=== PATIENT | male | born 1965 | race Hispanic/Latino ===

== ENCOUNTER 2020-03-13 19:09 | Observation (INO) | payer BC ==
[~2020-03-13] VITALS: Ht 172.7 cm; Wt 93.9 kg
--- NOTE | 2020-03-13 19:17 | Emergency Department Note ---
History of Present Illnes History of Present Illness Chief Complaint: Respiratory History of Present Illness This is a 54 year old male presents with Dyspnea x one day. Registered Nurse Practitioner Required: No Onset (how long ago): day(s) (1) Radiation: Reports non-radiation Severity: moderate Onset quality: gradual Duration (how long): day(s) (1) Timing of current episode: constant Progression: worsening Context: Reports recent illness; Denies recent surgery, Denies recent immobilization, Denies recent travel, Denies trauma/injury, Denies new medications, Denies hx of DVT/PE, Denies non- compliance w/ medications, Denies other Relieving factors: none Exacerbating factors: none Associated symptoms: Reports shortness of breath Past Medical/Family History Physician Review I have reviewed the patient's past medical and family history. Any updates have been documented here. Past Medical History Recent Fever: No Clinical Suspicion of Infectio: Yes New/Unexplained Change in Ment: No Past Medical History: Diabetes, CHF, Anxiety Other Surgery: prostate sx Social History Smoking Cessation: Never Smoker Alcohol Use: None Any Illegal Drug Use: No Review of Systems Review of Systems Constitutional: Denies fever EENTM: Reports no symptoms Cardiovascular: Denies chest pain Respiratory: Reports dyspnea Gastrointestinal: Reports no symptoms Genitourinary: Reports no symptoms Musculoskeletal: Reports no symptoms Integumentary: Reports no symptoms Neurological: Reports no symptoms Psychological: Reports no symptoms Endocrine: Reports no symptoms Hematological/Lymphatic: Reports no symptoms Physical Exam Related Data Allergies: Coded Allergies: No Known Allergies (Unverified , 03/13/20) Physical Exam CONSTITUTIONAL HENT EYES NECK PULMONARY CARDIOVASCULAR GASTROINTESTINAL GENITOURINARY SKIN MUSCULOSKELETAL NEUROLOGICAL PSYCHOLOGICAL Results Laboratory Lab results reviewed: Yes Laboratory comments Laboratory Tests Test 03/13/20 19:20 White Blood Count 7.80 x10e3/uL (4.8-10.8) Red Blood Count 5.35 x10e6/uL (4.3-5.7) Hemoglobin 14.9 g/dL (14.0-18.0) Hematocrit 44.4 % (38.2-49.6) Mean Corpuscular Volume 83.0 fL (81-99) Mean Corpuscular Hemoglobin 27.9 pg (28-32) Mean Corpuscular Hemoglobin Concent 33.6 g/dL (31-35) Red Cell Distribution Width 13.4 % (11.7-14.4) Platelet Count 81 x10e3/uL (140-360) Neutrophils (%) (Auto) 73.4 % (38.7-80.0) Lymphocytes (%) (Auto) 12.2 % (18.0-39.1) Monocytes (%) (Auto) 12.2 % (4.4-11.3) Eosinophils (%) (Auto) 0.1 % (0.0-6.0) Basophils (%) (Auto) 0.3 % (0.0-1.0) Neutrophils # (Auto) 5.7 (2.1-6.9) Lymphocytes # (Auto) 1.0 (1.0-3.2) Monocytes # (Auto) 1.0 (0.2-0.8) Eosinophils # (Auto) 0.0 (0.0-0.4) Basophils # (Auto) 0.0 (0.0-0.1) Absolute Immature Granulocyte (auto 0.14 x10e3/uL (0-0.1) Sodium Level 131 mmol/L (136-145) Potassium Level 3.8 mmol/L (3.5-5.1) Chloride Level 95 mmol/L (98-107) Carbon Dioxide Level 21 mmol/L (22-29) Anion Gap 18.8 mmol/L (8-16) Blood Urea Nitrogen 30 mg/dL (7-26) Creatinine 1.70 mg/dL (0.72-1.25) Estimat Glomerular Filtration Rate 42 ML/MIN (60-) BUN/Creatinine Ratio 18 (6-25) Glucose Level 235 mg/dL (74-118) Lactic Acid Level 1.7 mmol/L (0.5-2.0) Calcium Level 8.4 mg/dL (8.4-10.2) Total Bilirubin 0.8 mg/dL (0.2-1.2) Aspartate Amino Transf (AST/SGOT) 51 IU/L (5-34) Alanine Aminotransferase (ALT/SGPT) 58 IU/L (0-55) Alkaline Phosphatase 59 IU/L (40-150) Creatine Kinase 151 IU/L (30-200) Creatine Kinase MB 2.10 ng/mL (0-5.0) Troponin I 0.240 ng/mL (0-0.300) B-Type Natriuretic Peptide 540.6 pg/mL (0-100) Total Protein 7.2 g/dL (6.5-8.1) Albumin 3.8 g/dL (3.5-5.0) Globulin 3.4 g/dL (2.3-3.5) Albumin/Globulin Ratio 1.1 (0.8-2.0) Imaging Imaging results reviewed: Yes Impressions [place] [id number] Patient Name: AISSATOU TIPTON MR #: [id number] : 1965 Age/Sex: 54/M Req #: [id number] Adm Physician: Ordered by: DIONICIO SANTILLAN DO Report #: [id number] Location: ER Room/Bed: Procedure: [id number] CT/CT CHEST W Exam Date: 03/13/20 Exam Time: 2019 REPORT STATUS: Signed EXAM: CT Chest WITH contrast 03/13/2020 8:20 PM INDICATION: ^Y ^dyspnea ^[id number] ^2019 COMPARISON: None TECHNIQUE: Chest was scanned utilizing a multidetector helical scanner from the lung apex through the level of the adrenal glands without administration of IV contrast. Coronal and sagittal reformations were obtained. Routine protocol was performed. IV CONTRAST: 100 mL of Isovue-370 COMPLICATIONS: None RADIATION DOSE: Total DLP: 518.28 mGy*cm Estimated effective dose: (DLP x 0.014 x size factor) mSv CTDIvol has been reviewed. It is below the limits set by the Radiation Protocol Committee (RPC). FINDINGS: LINES/ TUBES: None. LUNGS AND AIRWAYS: 6 mm right upper lobe nodule (series 3, image 21). 8 mm right middle lobe nodule (series 3, image 66). Airways are normal. PLEURA: The pleural spaces are clear. HEART AND MEDIASTINUM: The thyroid gland is normal. No mediastinal, hilar or axillary lymphadenopathy. The heart is normal in size.. There is no pericardial effusion. No central pulmonary embolism. UPPER ABDOMEN: Hepatic steatosis. 4.8 x 3.9 cm hepatic dome hypodense lesion. Splenomegaly. BONES: The visualized bony thorax is within normal limits. SOFT TISSUES: Unremarkable. IMPRESSION: 1. No lung consolidations. 2. Right lung nodules, measuring up to 8 mm. Recommend follow-up chest CT in 6 months to ensure stability. 3. Hepatic steatosis. 4. 4.8 cm hepatic dome hypodense lesion, could represent a cyst. Recommend nonurgent right upper quadrant ultrasound or liver mass protocol MRI to confirm. 5. Splenomegaly. Signed by: Dr. Dickson Rodriguez MD on 03/13/2020 9:38 PM Dictated By: DICKSON RODRIGUEZ MD 37 Transcribed By: SHY on 03/13/202137 COPY TO: DIONICIO SANTILLAN DO~ Assessment & Plan Medical Decision Making MDM Diff Dx : CHF, PE, COVID-19 URI Assessment & Plan Final Impression: (1) Dyspnea (2) Abnormal renal function (3) Elevated brain natriuretic peptide (BNP) level Depart Disposition: ADMITTED Home Meds Active Scripts Potassium Chloride (POTASSIUM CHLORIDE) 20 Meq Tab.er.prt, 20 MEQ PO DAILY, #30 Prov:[facility] COORDINATOR 03/15/20 Tok-3/Dha/Epa/Fish Oil (OMEGA-3 FISH OIL SOFTGEL) 1 Each Capsule, 1000 MG PO BID for 30 Days Prov:[facility] COORDINATOR 03/15/20 Furosemide (FUROSEMIDE) 40 Mg Tablet, 40 MG PO DAILY for 30 Days Prov:[facility] COORDINATOR 03/15/20 Fenofibrate Nanocrystallized (FENOFIBRATE) 145 Mg Tablet, 145 MG PO DAILY for 30 Days Prov:[facility] COORDINATOR 03/15/20 Reported Medications Tamsulosin Hcl* (FLOMAX*) 0.4 Mg Cap, 0.8 MG PO DAILY, #30 CAP 03/14/20 Acetaminophen/Codeine* (TYLENOL # 3*) 1 Ea Tab, 30 MG PO Q6H PRN for ABDOMINAL PAIN 03/14/20 Losartan Potassium (LOSARTAN POTASSIUM) 100 Mg Tablet, 50 MG PO DAILY, TAB 03/14/20 Carvedilol (CARVEDILOL) 12.5 Mg Tablet, 25 MG PO BID, #60 TAB 03/14/20 DIONICIO SANTILLAN DO Mar 13, 2020 19:17
[2020-03-13] MEDS ORDERED: PIPERACILLIN/TAZO 4.5 GM 100 ML IV STA (19:18)
[2020-03-13] MEDS ORDERED: ASPIRIN 81 MG CHEW TAB PO ONE ×2 (19:30→22:00)
--- OUTSIDE RECORDS SUMMARY | 2020-03-13 19:38 | XMS REPORT | Clinical Summary ---
Author Author [facility] Organization [facility] Address Unknown Phone Unavailable Care Team Providers Care Motors And Controls Tester Name Role Phone Asked, No Pcp PCP Unavailable Allergies No Known Allergies Medications End Date Status Medication Sig Dispensed Refills Start Date Active carvedilol (COREG) 25 MG Take 25 mg by 0 tablet mouth 2 (two) times a day with meals. Active hydroCHLOROthiazide Take 25 mg by 0 (HYDRODIURIL) 25 MG mouth daily. tablet Active losartan (COZAAR) 50 MG Take 50 mg by 0 tablet mouth daily. Active finasteride (PROSCAR) 5 Take 5 mg by 0 mg tablet mouth daily. Active tamsulosin (FLOMAX) 0.4 Take 0.4 mg 0 mg capsule,extended by mouth 2 release 24hr (two) times a day. Active Problems Problem Noted Date BPH with urinary obstruction 11/01/2017 BPH with obstruction/lower urinary tract symptoms Personal history of congestive heart failure 018 Social History Date Tobacco Use Types Packs/Day Years Used Never Smoker Smokeless Tobacco: Never Used Sex Assigned at Date Recorded Not on file Industry Job Start Date Occupation Not on file Not on file Not on file Travel End Travel History Travel Start No recent travel history available. Last Filed Vital Signs Not on file Plan of Treatment Health Maintenance Due Date Last Done Comments COLONOSCOPY SCREENING 2013 SHINGLES VACCINES (#1) 2013 INFLUENZA VACCINE 04/11/2020 05/13/2017 Results Not on fileafter 03/13/2019 Insurance Type Payer Benefit Subscriber ID Effective Phone Address Plan / Dates Group HMO HUMANA HUMANA xxxxxxxxx 2017-P HMO/POS/EP resent O/OPEN ACCESS PPO HUMANA HUMANA xxxxxxxxx 2017-P CHOICE resent CARE PPO Advance Directives For more information, please contact: [phone] Patient Pc Maintenance Technician Explanation Type Date Recorded Advance Directives, Living Will and Medical Power of Maintenance Supervisor 2Nd Shift Advance Directives, 11/02/2017 10:32 AM Living Will and Medical Power of Maintenance Supervisor 2Nd Shift Advance Directives, 11/05/2017 9:46 AM Living Will and Medical Power of Maintenance Supervisor 2Nd Shift
--- OUTSIDE RECORDS SUMMARY | 2020-03-13 19:38 | XMS REPORT | Clinical Summary ---
Author Author [facility] Address Unknown Phone Unavailable Care Team Providers Care Physician Practice Administrator Name Role Phone Sharpless PCP Allergies No Known Allergies Medications End Date Status Medication Sig Dispensed Refills Start Date Active carvedilol (COREG) 25 MG Take 25 mg by 0 tablet mouth 2 (two) times daily with breakfast and dinner. Active hydroCHLOROthiazide Take 25 mg by 0 (HYDRODIURIL) 25 MG mouth daily. tablet Active tamsulosin (FLOMAX) 0.4 Take 0.8 mg 0 mg Cp24 24 hr capsule by mouth daily. Active Problems Not on file Social History Date Tobacco Use Types Packs/Day Years Used Never Smoker Smokeless Tobacco: Never Used Alcohol Use Drinks/Week oz/Week Comments Yes 1 Glasses of 1.2 wine 1 Cans of beer Sex Assigned at Date Recorded Not on file Industry Job Start Date Occupation Not on file Not on file Not on file Travel End Travel History Travel Start No recent travel history available. Last Filed Vital Signs Not on file Plan of Treatment Not on file Implants Device Identifier Shelf Expiration Date Model / Serial / L ot Implanted Type Area Manufactur er 02/26/2018 [id number] / / [id number] Imp Prpel Mometasn Cntr Furo 8 [place] Right: Sinus INTERSECT 10578 - [id number] ryngology ENT Implanted: Qty: 1 on 06/11/2017 by Carlos Barrera MD 11/25/2018 61252 / / [id number] Imp Propel Mini Mometasone 45358 - [place] Right: Sinu s INTERSECT [id number] ryngology ENT Implanted: Qty: 1 on 06/11/2017 by Carlos Barrera MD 01/13/2018 [id number] / / [id number] Imp Propel Mometasone Furoate [place] Right: Sinus INTERSECT 53582 - [id number] ryngology ENT Implanted: Qty: 1 on 06/11/2017 by Carlos Barrera MD 01/16/2019 52845 / / [id number] Imp Propel Mometasone Furoate [place] Left: Sinus INTERSECT 36276 - [id number] ryngology ENT Implanted: Qty: 1 on 06/11/2017 by Carlos Barrera MD Results Not on fileafter 03/13/2019 Insurance Payer Benefit Subscriber ID Type Phone Address Plan / Group HUMANA - MGD CARE HUMANA HMO xxxxxxxxx HMO/POS POS [phone] [id number] [facility] [place] [address] Advance Directives Patient has advance care planning documents on file. For more information, yohana alvarado contact: [facility] [address] [place] [address]
--- OUTSIDE RECORDS SUMMARY | 2020-03-13 19:38 | XMS REPORT | Continuity of Care Document ---
Author Author [facility] t Organization [facility] Address [address] [place] [address] Phone Unavailable Care Team Providers Care Java Lead Developer Name Role Phone Asked, Pcp No PCP Unavailable NICKY BARRERA Attphys Unavailable NICKY BARRERA Admphys Unavailable Advance Directives Directive Decision Effective Date Termination Date Comments Sour ce Patient has advance care planning docume nts on file. For more information, please contact:[address] [phone] N/A 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 Disease Active 2017-11-01 00:00:00 Abelino Fernandez BPH with obstruction/lower urinary tract symptoms BPH with obstruction/lower urinary tract symptoms Disease Active 2017-10-27 00:00:00 Abelino Fernandez Personal history of congestive heart failure Personal history of congestive heart failure Disease Active 2017-10-27 00:00:00 Abelino Fernandez Urinary tract infection associated with indwelling ure thral catheter Urinary tract infection associated with indwelling urethral catheter Disease Active 2017-01-12 00:00:00 [facility] 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0-33.9,adult BMI 33.0-33.9,adult Disease Active 2013-01-06 00:00 :00 [facility] CHF (congestive heart failure) CHF (congestive heart failure) Disea se Active 2010-06-11 00:00:00 Overview: DX at [facility]; EF 20% [facility] Allergies, Adverse Reactions, Alerts This patient has no known allergies or adverse reactions. Family History Family Member Diagnosis Comments Start Date Stop Date Source Natural brother Hypertension [facility] Natural brother Sickle Cell [facility] Natural father Heart [facility] Natural father Hypertension [facility] Natural father Stroke [facility] Natural mother Cancer [facility] Natural sister Diabetes [facility] Natural sister Hypertension [facility] Social History Social Habit Start Date Stop Date Quantity Comments Source Sex Assigned At [facility] Alcohol intake 2017-02-05 00:00:00 2017-02-05 00:00:00 Current drinker of alcohol (finding) [facility] Alcohol Comment 2016-06-02 00:00:00 2016-06-02 00:00:00 occ [facility] Smoking Status Start Date Stop Date Source Never smoker [facility] Medications Ordered Medication Name Filled Medication Name Start Date Stop Da te Current Medication? Ordering Clinician Indication Dosage Frequency Signature (SIG) Comments Components Source carvedilol (COREG) 25 MG tablet 2017-11-02 12:00:24 Yes 25mg Q.5D Take 25 mg by mouth 2 (two) times a day with meals. Abelino Fernandez hydroCHLOROthiazide (HYDRODIURIL) 25 MG tablet 2017-11-02 12:00: 24 Yes 25mg QD Take 25 mg by mouth daily. Alicia Fernandez losartan (COZAAR) 50 MG tablet 2017-11-02 12:00:24 Yes 50mg QD Take 50 mg by mouth daily. Abelino Fernandez finasteride (PROSCAR) 5 mg tablet 2017-11-02 12:00:24 Yes 5mg QD Take 5 mg by mouth daily. Abelino Fernandez tamsulosin (FLOMAX) 0.4 mg capsule,extended release 24hr 2017-11-02 12:00:24 Yes .4mg Q.5D Take 0.4 mg by mouth 2 (two) indy es a day. Abelino Fernandez tamsulosin (FLOMAX) 0.4 mg Cp24 24 hr capsule 2017-06-07 13:59:3 6 Yes .8mg QD Take 0.8 mg by mouth daily. [facility] carvedilol (COREG) 25 MG tablet 2017-06-07 13:59:35 Yes 25mg Take 25 mg by mouth 2 (two) times daily with breakfast and dinner. [facility] hydroCHLOROthiazide (HYDRODIURIL) 25 MG tablet 2017-06-07 13:59: 35 Yes 25mg QD Take 25 mg by mouth daily. [facility] tamsulosin (FLOMAX) 0.4 mg extended release capsule 02-05 00:00:00 Yes Urinary tract infection associated with indwelling urethral catheter, initial encounter .4mg QD Take 1 capsule by mouth daily. [facility] finasteride (PROSCAR) 5 mg tablet 2017-02-05 00:00:00 Yes Urinary tract infection associated with indwelling urethral catheter, initial encounter 5mg QD Take 1 tablet by mouth daily. [facility] amLODIPine (NORVASC) 10 mg tablet 2016-07-21 14:23:17 Yes 10mg QD Take 10 mg by mouth daily. [facility] hydroCHLOROthiazide (HYDRODIURIL) 25 mg tablet 2016-07-21 00 :00:00 Yes Essential hypertension, benign 25mg QD Take 1 tablet by mouth demetrio walker [facility] metFORMIN (GLUCOPHAGE) 500 mg tablet 2016-07-21 00:00:00 Yes Pre-diabetes 500mg Take 1 tablet by mouth 2 times daily (with meals). [facility] cetirizine (ZYRTEC) 10 mg tablet 2016-07-21 00:00:00 Yes Allergic rhinitis, unspecified allergic rhinitis trigger, unspecified rhinitis seasonality 10mg QD Take 1 tablet by mouth daily. [facility] mometasone (NASONEX) 50 mcg/actuation nasal spray 2016-07-21 00:00:00 Yes Allergic rhinitis, unspecified allergic rhinitis trigger, unspecified rhinitis seasonality 2{spray} 2 Sprays by each nos tril route 2 times daily as needed (nasal congestion). [facility] mometasone (NASONEX) 50 mcg/actuation nasal spray 2016-04-27 00:00:00 Yes Nasal congestion 1{spray} QD 1 [place] by each nost ril route daily One spray in each nostril after nasal saline irrigation at bedtime.. [facility] Immunizations Ordered Immunization Name Filled Immunization Name Date Status Comments Source Tdap Tetanus, diphtheria, acellular pertussis Vaccine 2013-01-06 00:00:00 Completed [facility] Procedures This patient has no known procedures. Plan of Care Planned Activity Planned Date Details Comments Source Future Scheduled Test 2020-04-11 00:00:00 INFLUENZA VACCINE [code = INFLUENZA VACCINE] [facility] Scheduled Test 2020-04-11 00:00:00 IMM Influenza Seas onal Apr to September (>/= 19 yrs) [code = IMM Influenza Seasonal Apr to September (>/= 19 yrs)] [facility] Scheduled Test 2013 00:00:00 COLONOSCOPY SCREEN ING [code = COLONOSCOPY SCREENING] [facility] Scheduled Test 2013 00:00:00 SHINGLES VACCINES (#1) [code = SHINGLES VACCINES (#1)] [facility] Scheduled Test 2013 00:00:00 Screening for juan david gnant neoplasm of colon (procedure) [code = 193577346] [facility] Encounters Start Date/Time End Date/Time Encounter Type Admission Type [facility] Facility Care Department Encounter ID Source 2017-03-05 00:00:00 2017-03-05 00:00:00 Outpatient [facility] [id number] [facility] 2017-02-05 10:35:45 2017-02-05 10:35:45 Outpatient [facility] [id number] [facility] 2017-01-12 00:13:49 2017-01-12 00:13:49 Emergency [facility] [id number] [facility] 2017-01-04 11:39:26 2017-01-04 11:39:26 Emergency [facility] [id number] [facility] 2016-06-02 08:47:03 2016-06-02 08:47:03 Outpatient [facility] [id number] [facility] 2016-05-19 10:47:28 2016-05-19 10:47:28 Outpatient [facility] [id number] [facility] Results Test Description Test Time Test Comments Results Result Comments Source ANAEROBIC CULTURE 2017-06-17 03:37:00 Test Item CULTURE (BEAKER) (test code = 1095) A 3+ Parvimonas micra TISSUE [id number] 09:48:00Surgical Pathology Report Case: [id number] Authorizing Provider: Carlos Barrera MD Collected: 06/11/2017 0953 Ordering Location: [facility] Received: 06/11/2017 1347 SERVICES Pathologist: Delia De Luna MD Specimen: Sinus, Right, RIGHT SINUS CONTENTS RIGHT SINUS CONTENTS, EXCISION- BENIGN SQUAMOUS PAPILLOMA, INVERTED TYPE Signing Pathologist Direct Phone Line: [phone] signed by Delia De Luna MD on 06/14/2017 at 9:48 [id number] pansinusitis. Nasal turbinate hypertrophy. Nasal polyp.Right sinus contents.The specimen is received in a formalin-filled container labeled with the patient's information and labeled right sinus contents and consists of multiple fragments of trujillo soft tissue and cartilage with no distinct mass measuring 2.5 x 2 x 0.8 cm in aggregate. It is submitted entirely A1 and A2. CG/bc Performed.SINUS CULTURE + GRAM [id number] 08:12:00* Test Item Value Reference Range Interpretation Comments CULTURE (BEAKER) (test code = 1095) Clindamycin (test code = 10) S Erythromycin (test code = 4) S Linezolid (test code = 40) S Nitrofurantoin (test code = 23) S Oxacillin (test code = 14) S Rifampin (test code = 43) S Tetracycline (test code = 2) S Trimethoprim + Sulfamethoxazole (test code = 47) S Vancomycin (test code = 13) S CULTURE (BEAKER) (test code = 1095) PSEUDOMONAS AERUGINOSA A 3+ Staphylococcus aureus Amikacin (test code = 1) Susceptible 0-16 , Resistant <0 or >16 S Aztreonam (test code = 32) Susceptible 0-8 , Resistant <0 or >8 S Cefepime (test code = 51) Susceptible 0-8 , Resistant <0 or >8 S Ceftazidime (test code = 27) Susceptible 0-8 , Resista nt <0 or >8 S Ciprofloxacin (test code = 7) Susceptible 0-1 , Resist ant <0 or >1 S Doripenem (test code = 100) Susceptible 0-2 , Resistan t <0 or >2 S Gentamicin (test code = 18) Susceptible 0-4 , Resistan t <0 or >4 S Imipenem (test code = 19) Susceptible 0-2 , Resistant <0 or >2 S Levofloxacin (test code = 22) Susceptible 0-2 , Resist ant <0 or >2 S Meropenem (test code = 34) Susceptible 0-2 , Resistant <0 or >2 S Piperacillin (test code = 24) Susceptible 0-16 , Resis tant <0 or >16 S Piperacillin + Tazobactam (test code = 29) Susceptible 0-16 , Resistant <0 or >16 S Tobramycin (test code = 25) Susceptible 0-4 , Resistan t <0 or >4 S CULTURE (BEAKER) (test code = 1095) ESCHERICHIA COLI A 2+ Pseudomonas aeruginosa Amikacin (test code = 1) S Ampicillin + Sulbactam (test code = 6) S Aztreonam (test code = 32) S Cefepime (test code = 51) S Cefoxitin (test code = 68) S Ceftazidime (test code = 27) S Ceftriaxone (test code = 52) S Ertapenem (test code = 38) S Gentamicin (test code = 18) S Levofloxacin (test code = 22) S Meropenem (test code = 34) S Piperacillin + Tazobactam (test code = 29) S Tetracycline (test code = 2) S Tobramycin (test code = 25) S Trimethoprim + Sulfamethoxazole (test code = 47) S CULTURE (BEAKER) (test code = 1095) A 2+ Escherichia coli GRAM STAIN RESULT (BEAKER) (test code = 1123) 1+ WBCs GRAM STAIN RESULT (BEAKER) (test code = 402699) 2+ gram posi tive cocci in pairs No Normal [facility] [id number] 12:16:00* Test Item Value Reference Range Interpretation Comments SODIUM (BEAKER) (test code = 381) 140 meq/L 136-145 POTASSIUM (BEAKER) (test code = 379) 4.0 meq/L 3.5-5.1 CHLORIDE (BEAKER) (test code = 382) 105 meq/L 98-107 CO2 (BEAKER) (test code = 355) 23 meq/L 22-29 BLOOD UREA NITROGEN (BEAKER) (test code = 354) 16 mg/dL 7-21 CREATININE (BEAKER) (test code = 358) 1.02 mg/dL 0.57-1.25 GLUCOSE RANDOM (BEAKER) (test code = 652) 162 mg/dL 70-105 H CALCIUM (BEAKER) (test code = 697) 9.7 mg/dL 8.4-10.2 EGFR (BEAKER) (test code = 1092) 76 mL/min/1.73 sq m ESTIMATED GFR IS NOT ACCURATE CREATININE CLEARANCE IN PREDICTING GLOMERULAR FILTRATION RATE. ESTIMATED GFR IS NOT APPLICABLE FOR DIALYSIS PATIENTS. POCT-HEMOGLOBIN [id number] 08:13:00* Test Item Value Reference Range Interpretation Comments POC-HEMOGLOBIN METER (AIDAN) (test code = 1539) 19.4 g/dL 13.0- 16.8 H TESTED AT [facility] [address] [facility] [address]
--- OUTSIDE RECORDS SUMMARY | 2020-03-13 19:38 | XMS REPORT | Clinical Summary ---
Author Author [facility] Organization [facility] Address Unknown Phone Unavailable Care Team Providers Care Data Entry Name Role Phone PCP Unavailable Allergies No Known Allergies Medications End Date Status Medication Sig Dispensed Refills Start Date Active mometasone (NASONEX) 50 1 [place] by 17 g 3 mcg/actuation nasal each nostril 6 sprayIndications: Nasal route daily polyposis, Non-seasonal One spray in allergic rhinitis due to each nostril other allergic trigger, after nasal Nasal congestion saline irrigation at bedtime.. Active amLODIPine (NORVASC) 10 Take 10 mg by 0 mg tablet mouth daily. Active hydroCHLOROthiazide Take 1 tablet 90 tablet 1 07/12 (HYDRODIURIL) 25 mg by mouth 7 tabletIndications: daily. Essential hypertension, benign Active metFORMIN (GLUCOPHAGE) Take 1 tablet 180 tablet 1 0 500 mg tabletIndications: by mouth 2 7 Pre-diabetes times daily (with meals). Active cetirizine (ZYRTEC) 10 mg Take 1 tablet 90 tablet 1 tabletIndications: by mouth 7 Allergic rhinitis, daily. unspecified allergic rhinitis trigger, unspecified rhinitis seasonality Active mometasone (NASONEX) 50 2 Sprays by 17 g 2 mcg/actuation nasal each nostril 7 sprayIndications: route 2 times Allergic rhinitis, daily as unspecified allergic needed (nasal rhinitis trigger, congestion). unspecified rhinitis seasonality Active tamsulosin (FLOMAX) 0.4 Take 1 90 capsule 3 mg extended release capsule by 7 capsuleIndications: BPH mouth daily. with urinary obstruction, Urinary tract infection associated with indwelling urethral catheter, initial encounter Active finasteride (PROSCAR) 5 Take 1 tablet 90 tablet 3 mg tabletIndications: BPH by mouth 7 with urinary obstruction, daily. Urinary tract infection associated with indwelling urethral catheter, initial encounter Active Problems Problem Noted Date Urinary tract infection associated with indwelling ur ethral catheter 01/12/2017 BPH with urinary obstruction 01/12/2017 Nasal polyposis 05/19/2016 Nasal congestion 05/19/2016 Essential hypertension, benign 01/06/2013 Allergic rhinitis 01/06/2013 Health maintenance examination 01/06/2013 BMI 33.0-33.9,adult 01/06/2013 CHF (congestive heart failure) 06/11/2010 Overview: DX at [facility]; EF 20% Immunizations Name Administration Dates Next Due Tdap Tetanus, diphtheria, 01/06/2013 acellular pertussis Vaccine Family History Medical History Relation Name Comments Hypertension Brother Sickle Cell Brother Heart Father Hypertension Father Stroke Father Cancer Mother uterine cancer Diabetes Sister Hypertension Sister Relation Name Status Comments Brother Father stroke (Age 55) Mother accident Sister Social History Date Tobacco Use Types Packs/Day Years Used Never Smoker Smokeless Tobacco: Never Used Tobacco Cessation: Counseling Given: No Drinks/Week oz/Week Comments Alcohol Use 0 Standard drinks or equivalent 0.0 occ Yes Sex Assigned at Date Recorded Not on file Industry Job Start Date Occupation Not on file Not on file Not on file Travel End Travel History Travel Start No recent travel history available. Last Filed Vital Signs Not on file Plan of Treatment Health Maintenance Due Date Last Done Comments Colorectal Cancer Scrn 2013 Annual (FIT/FOBT) Age 50 to 75 IMM Influenza Seasonal 04/11/2020 Oct to September (>/= 19 yrs) Results Not on fileafter 03/13/2019 Insurance Type Payer Benefit Subscriber ID Effective Phone Address Plan / Dates Group HUMANA HUMANA OON xxxxxxxxx 2017-P [phone] [address] [address] [place] [address] [facility] SELF-PAY SELF-PAY xxxxxx 2017-6 [address] [place] [address] Advance Directives Patient Poising Inspector Explanation Type Date Recorded Advance Directives 09/02/2010 12:00 AM and Living Will Advance Directives 01/12/2017 2:20 AM and Living Will
[2020-03-13 19:43] LABS: BASOPHILS % 0.3 % (0.0-1.0); EOSINOPHILS % 0.1 % (0.0-6.0); HEMATOCRIT 44.4 % (38.2-49.6); HEMOGLOBIN 14.9 g/dL (14.0-18.0); LYMPHOCYTES % 12.2 % (18.0-39.1); MEAN CORPUSCULAR HEMOGLOBIN 27.9 pg (28-32); MEAN CORPUSCULAR HGB CONC 33.6 g/dL (31-35); MONOCYTES % 12.2 % (4.4-11.3); NEUTROPHILS # (AUTO) 5.7 (2.1-6.9); NEUTROPHILS % 73.4 % (38.7-80.0); RED BLOOD COUNT 5.35 x10e6/uL (4.3-5.7); RED CELL DISTRIBUTION WIDTH 13.4 % (11.7-14.4)
[2020-03-13 19:46] LABS: PLATELET COUNT 81 x10e3/uL (140-360)
[2020-03-13 20:03] LABS: ALBUMIN 3.8 g/dL (3.5-5.0); ALBUMIN/GLOBULIN RATIO 1.1 (0.8-2.0); ANION GAP 18.8 mmol/L (8-16); CALCIUM 8.4 mg/dL (8.4-10.2); CREATININE, SERUM 1.7 mg/dL (0.72-1.25); POTASSIUM 3.8 mmol/L (3.5-5.1)
[2020-03-13 20:07] LABS: B-TYPE NATRIURETIC PEPTIDE2 540.6 pg/mL (0-100)
[2020-03-13 20:09] LABS: CREATINE KINASE MB 2.1 ng/mL (0-5.0)
[2020-03-13] MEDS ORDERED: SODIUM CHLORIDE 0.9% 1000ML 1,000 ML IV STA (20:19)
--- NOTE | 2020-03-13 21:42 | Diagnostic Imaging Report ---
ADDENDUM #1 Correction: CT PE protocol was performed. No evidence of pulmonary embolism. Main pulmonary artery measures 3.6 cm, suggestive of pulmonary hypertension. Signed by: Dr. Dickson Thibodeaux MD on 03/13/2020 9:43 PM ORIGINAL REPORT EXAM: CT Chest WITH contrast 03/13/2020 8:20 PM INDICATION: ^Y ^dyspnea ^20200313 ^2019 COMPARISON: None TECHNIQUE: Chest was scanned utilizing a multidetector helical scanner from the lung apex through the level of the adrenal glands without administration of IV contrast. Coronal and sagittal reformations were obtained. Routine protocol was performed. IV CONTRAST: 100 mL of Isovue-370 COMPLICATIONS: None RADIATION DOSE: Total DLP: 518.28 mGy*cm Estimated effective dose: (DLP x 0.014 x size factor) mSv CTDIvol has been reviewed. It is below the limits set by the Radiation Protocol Committee (RPC). FINDINGS: LINES/ TUBES: None. LUNGS AND AIRWAYS: 6 mm right upper lobe nodule (series 3, image 21). 8 mm right middle lobe nodule (series 3, image 66). Airways are normal. PLEURA: The pleural spaces are clear. HEART AND MEDIASTINUM: The thyroid gland is normal. No mediastinal, hilar or axillary lymphadenopathy. The heart is normal in size.. There is no pericardial effusion. No central pulmonary embolism. UPPER ABDOMEN: Hepatic steatosis. 4.8 x 3.9 cm hepatic dome hypodense lesion. Splenomegaly. BONES: The visualized bony thorax is within normal limits. SOFT TISSUES: Unremarkable. IMPRESSION: 1. No lung consolidations. 2. Right lung nodules, measuring up to 8 mm. Recommend follow-up chest CT in 6 months to ensure stability. 3. Hepatic steatosis. 4. 4.8 cm hepatic dome hypodense lesion, could represent a cyst. Recommend nonurgent right upper quadrant ultrasound or liver mass protocol MRI to confirm. 5. Splenomegaly. Signed by: Dr. Dickson Thibodeaux MD on 03/13/2020 9:38 PM
[2020-03-13] MEDS ORDERED: SODIUM CHLORIDE FLUSH 10 ML SYR INJ PRN (22:00)
[2020-03-13] MEDS ORDERED: LORAZEPAM INJ 2 MG/ML VIAL IV ONE (22:00)
[2020-03-13] MEDS ORDERED: SODIUM CHLORIDE 0.9% 50ML 50 ML ONE ×2 (22:04)
[2020-03-13] MEDS ORDERED: IOPAMIDOL 370 MG/ML 200 ML INFUS..BTL INJ ONE ×2 (22:04)
[2020-03-13 22:16] LABS: ABG HCO3 23 mmol/L (22-26); ABG PCO2 37 mmHg (35-45); ABG PO2 94 mmHg (80-105); ABG TCO2 25
--- OUTSIDE RECORDS SUMMARY | 2020-03-13 22:19 | XMS REPORT | Continuity of Care Document ---
Author Author [facility] t Organization [facility] Address [address] [place] [address] Phone Unavailable Care Team Providers Care Correspondence Renew Clerk Name Role Phone Sharpless PCP DIONICIO SANTILLAN Attphys Unavailable BORSKI, NICKY HENDERSON Attphys Unavailable BORSKI, NICKY HENDERSON Admphys Unavailable Advance Directives Directive Decision Effective Date Termination Date Comments Sour ce Patient has advance care planning docume nts on file. For more information, please contact:[address] [phone] N/A [facility] Problems Condition Name Condition Details [...] indwelling urethral catheter Disease Active 2017-01-12 00:00:00 Frank lewis BPH with urinary obstruction BPH with urinary obstruction Disease Active 2017-01-12 00:00:00 [place] Alicia lewis Nasal polyposis Nasal polyposis Disease Active 2016-05-19 00:00:00 [facility] Nasal congestion Nasal congestion Disease Active 2016-05-19 00:00:00 [facility] Essential hypertension, benign Essential hypertension, benign Disea se Active 2013-01-06 00:00:00 [facility] Allergic rhinitis Allergic rhinitis Disease Active 2013-01-06 00:00:00 [facility] maintenance examination Health maintenance examination Disea se Active 2013-01-06 00:00:00 [facility] BMI 33.0-33.9,adult BMI 33.0-33.9,adult Disease Active 2013-01-06 00:00 :00 [facility] CHF (congestive heart failure) CHF (congestive heart failure) Disea se Active 2010-06-11 00:00:00 Overview: DX at [facility]; EF 20% [facility] Allergies, Adverse Reactions, Alerts This patient has no known allergies or adverse reactions. Family History Family Member Diagnosis Comments Start Date Stop Date Source Natural brother Hypertension [facility] Natural brother Sickle Cell [facility] Natural father Heart [facility] Natural father Hypertension [facility] Natural father Stroke [facility] Natural mother Cancer [facility] Natural sister Diabetes [facility] Natural sister Hypertension [facility] Social History Social Habit Start Date Stop Date Quantity Comments Source Sex Assigned At [facility] Alcohol intake 2017-02-05 00:00:00 2017-02-05 00:00:00 Current drinker of alcohol (finding) [facility] Alcohol Comment 2016-06-02 00:00:00 2016-06-02 00:00:00 occ [facility] Smoking Status Start Date Stop Date Source Never smoker [facility] Medications Ordered Medication Name Filled Medication Name [...] 2 (two) indy es a day. [facility] tamsulosin (FLOMAX) 0.4 mg Cp24 24 hr capsule 2017-06-07 13:59:3 6 Yes .8mg QD Take 0.8 mg by mouth daily. [facility] carvedilol (COREG) 25 MG tablet 2017-06-07 13:59:35 Yes 25mg Take 25 mg by mouth 2 (two) times daily with breakfast and dinner. [facility] hydroCHLOROthiazide (HYDRODIURIL) 25 MG tablet 2017-06-07 13:59: 35 Yes 25mg QD Take 25 mg by mouth daily. [facility] tamsulosin (FLOMAX) 0.4 mg extended release capsule 02-05 00:00:00 Yes Urinary tract infection associated with indwelling urethral catheter, initial encounter .4mg QD Take 1 capsule by mouth daily. [facility] finasteride (PROSCAR) 5 mg tablet 2017-02-05 00:00:00 Yes Urinary tract infection associated with indwelling urethral catheter, initial encounter 5mg QD Take 1 tablet by mouth daily. [facility] amLODIPine (NORVASC) 10 mg tablet 2016-07-21 14:23:17 Yes 10mg QD Take 10 mg by mouth daily. [facility] hydroCHLOROthiazide (HYDRODIURIL) 25 mg tablet 2016-07-21 00 :00:00 Yes Essential hypertension, benign 25mg QD Take 1 tablet by mouth demetrio walker [facility] metFORMIN (GLUCOPHAGE) 500 mg tablet 2016-07-21 00:00:00 Yes Pre-diabetes 500mg Take 1 tablet by mouth 2 times daily (with meals). [facility] cetirizine (ZYRTEC) 10 mg tablet 2016-07-21 00:00:00 Yes Allergic rhinitis, unspecified allergic rhinitis trigger, unspecified rhinitis seasonality 10mg QD Take 1 tablet by mouth daily. [facility] mometasone (NASONEX) 50 mcg/actuation nasal spray 2016-07-21 00:00:00 Yes Allergic rhinitis, unspecified allergic rhinitis trigger, unspecified rhinitis seasonality 2{spray} 2 Sprays by each nos tril route 2 times daily as needed (nasal congestion). [facility] mometasone (NASONEX) 50 mcg/actuation nasal spray 2016-04-27 00:00:00 Yes Nasal congestion 1{spray} QD 1 [place] by each nost ril route daily One spray in each nostril after nasal saline irrigation at bedtime.. [facility] Immunizations Ordered Immunization Name Filled Immunization Name Date Status Comments Source Tdap Tetanus, diphtheria, acellular pertussis Vaccine 2013-01-06 00:00:00 Completed [facility] Procedures This patient has no known procedures. Plan of Care Planned Activity Planned Date Details Comments Source Future Scheduled Test 2020-04-11 00:00:00 INFLUENZA VACCINE [code = INFLUENZA VACCINE] [facility] [place] Scheduled Test 2020-04-11 00:00:00 IMM Influenza Seas onal Apr to September (>/= 19 yrs) [code = IMM Influenza Seasonal Apr to September (>/= 19 yrs)] [facility] Scheduled Test 2013 00:00:00 COLONOSCOPY SCREEN ING [code = COLONOSCOPY SCREENING] [facility] [place] Scheduled Test 2013 00:00:00 SHINGLES VACCINES (#1) [code = SHINGLES VACCINES (#1)] [facility] [place] Scheduled Test 2013 00:00:00 Screening for juan david gnant neoplasm of colon (procedure) [code = 360341189] [facility] Encounters Start Date/Time End Date/Time Encounter Type Admission Type Att[facility] Facility Care Department Encounter ID Source 2017-03-05 00:00:00 2017-03-05 00:00:00 Outpatient [facility] [id number] [facility] 2017-02-05 10:35:45 2017-02-05 10:35:45 Outpatient [facility] [id number] [facility] 2017-01-12 00:13:49 2017-01-12 00:13:49 Emergency [facility] [id number] [facility] 2017-01-04 11:39:26 2017-01-04 11:39:26 Emergency [facility] [id number] [facility] 2016-06-02 08:47:03 2016-06-02 08:47:03 Outpatient [facility] [id number] [facility] 2016-05-19 10:47:28 2016-05-19 10:47:28 Outpatient [facility] [id number] [facility] Results Test Description Test Time Test Comments Results Result Comments Source CT CHEST W 2020-03-13 21:13:00 [facility] [address] [address] Patient Name: AISSATOU TIPTON MR #: [id number] : 1965 Age/Sex: 54/M Req #: [id number] Adm Physician: Ordered by: DIONICIO SANTILLAN DO Report #: [id number] Location: ER Room/Bed: Procedure: [id number] CT/CT CHEST W Exam Date: 03/13/20 Exam Time: 2019 REPORT STATUS: Signed ADDENDUM #1 Correction: CT PE protocol was performed. No evidence of pulmonary embolism. Main pulmonary artery measures 3.6 cm, suggestive of pulmonary hypertension. Signed by: Dr. Dickson Rodriguez MD on 03/13/2020 9:43 PM ORIGINAL REPORT EXAM: CT Chest WITH contrast 03/13/2020 8:20 PM INDICATION: Y dyspnea 20200313 COMPARISON: None TECHNIQUE: Chest was scanned utilizing a multidetector helical scanner from the lung apex through the level of the adrenal glands without administration of IV contrast. Coronal and sagittal reformations were obtained. Routine protocol was performed. IV CONTRAST: 100 mL of Isovue-370 COMPLICATIONS: None RADIATION DOSE: Total DLP: 518.28 mGy*cm Estimated effective dose: (DLP x 0.014 x size factor) mSv CTDIvol has been reviewed. It is below the limits set by the Radiation Protocol Committee (RPC). FINDINGS: LINES/ TUBES: None. LUNGS AND AIRWAYS: 6 mm right upper lobe nodule (series 3, image 21). 8 mm right middle lobe nodule (series 3, image 66). Airways are normal. PLEURA: The pleural spaces are clear. HEART AND MEDIASTINUM: The thyroid gland is normal. No mediastinal, hilar or axillary lymphadenopathy. The heart is normal in size.. There is no pericardial effusion. No central pulmonary embolism. UPPER ABDOMEN: Hepatic steatosis. 4.8 x 3.9 cm hepatic dome hypodense lesion. Splenomegaly. BONES: The visualized bony thorax is within normal limits. SOFT TISSUES: Unremarkable. IMPRESSION: 1. No lung consolidations. 2. Right lung nodules, measuring up to 8 mm. Recommend follow-up chest CT in 6 months to ensure stability. 3. Hepatic steatosis. 4. 4.8 cm hepatic dome hypodense lesion, could represent a cyst. Recommend nonurgent right upper quadrant ultrasound or liver mass protocol MRI to confirm. 5. Splenomegaly. Signed by: Dr. Dickson Rodriguez MD on 03/13/2020 9:38 PM Dictated By: DICKSON RODRIGUEZ MD Jeimy ctronically Signed By: DICKSON RODRIGUEZ MD on 03/13/202142 Transcribed By: SHY on 03/13/202137 COPY TO: DIONICIO SANTILLAN DO ANAEROBIC CULTURE 2017-06-17 03:37:00 Test Item CULTURE (BEAKER) (test code = 1095) A 3+ Parvimonas micra TISSUE [id number] 09:48:00Surgical Pathology Report Case: [id number] Authorizing Provider: Carlos Barrera MD Collected: 06/11/2017 0953 Ordering Location: [facility] Received: 06/11/2017 1347 SERVICES Pathologist: Delia De Luna MD Specimen: Sinus, Right, RIGHT SINUS CONTENTS RIGHT SINUS CONTENTS, EXCISION- BENIGN SQUAMOUS PAPILLOMA, INVERTED TYPE Signing Pathologist Direct Phone Line: [phone] signed by Delia De Luna MD on 06/14/2017 at 9:48 [id number] pansinusitis. Nasal turbinate hypertrophy. Nasal polyp.Right sinus contents.The specimen is received in a formalin-filled container labeled with the patient's information and labeled right sinus contents and consists of multiple fragments of trujillo soft tissue and cartilage with no distinct mass measuring 2.5 x 2 x 0.8 cm in aggregate. It is submitted entirely A1 and A2. CG/bc Performed.SINUS CULTURE + GRAM [id number] 08:12:00* Test Item Value Reference Range Interpretation Comments CULTURE (BEAKER) (test code = 0542) Clindamycin (test code = 10) S Erythromycin [...] Resistan t <0 or >4 S CULTURE (PrestodiagAKER) (test code = 1095) ESCHERICHIA COLI A [...] GRAM STAIN RESULT (BEAKER) (test code = 271155) 2+ gram posi tive cocci in pairs No Normal respiratory bryce presentBASIC METABOLIC [id number] 12:16:00* Test Item Value Reference Range Interpretation [...] IS NOT APPLICABLE FOR DIALYSIS PATIENTS. POCT-HEMOGLOBIN [id number] 08:13:00* Test Item Value Reference Range Interpretation Comments POC-HEMOGLOBIN METER (BEAKER) (test code = 1539) 19.4 g/dL 13.0- 16.8 H TESTED AT [facility] [address] [address]
--- OUTSIDE RECORDS SUMMARY | 2020-03-13 22:19 | XMS REPORT | Clinical Summary ---
Author Author [facility] Address Unknown Phone Unavailable Care Team Providers Care Building Carpenter Name Role Phone Asked, No Pcp PCP [...] Advance Directives For more information, please contact: [phone] Patient Plastic Worker Explanation Type Date Recorded Advance Directives, Living Will and Medical Power of Scanning Clerk Advance Directives, 11/02/2017 10:32 AM Living Will and Medical Power of Scanning Clerk Advance Directives, 11/05/2017 9:46 AM Living Will and Medical Power of Scanning Clerk
--- OUTSIDE RECORDS SUMMARY | 2020-03-13 22:19 | XMS REPORT | Clinical Summary ---
Author Author [facility] Organization [facility] Address Unknown Phone Unavailable Care Team Providers Care Emt I/85 Name Role Phone PCP Unavailable Allergies No Known Allergies Medications End Date Status Medication Sig Dispensed Refills Start Date Active mometasone (NASONEX) 50 1 [place] by 17 g 3 mcg/actuation nasal each [...] (congestive heart failure) 06/11/2010 Overview: DX at [facility]; EF 20% Immunizations Name Administration Dates Next [...] Dates Group HUMANA HUMANA OON xxxxxxxxx 2017-P [phone] [address] [address] [place] [address] [facility] SELF-PAY SELF-PAY xxxxxx 2017-6 [address] [place] [address] [phone] [address] [facility] [place] [address] Advance Directives Patient Residential Case Manager Explanation Type Date Recorded Advance Directives 09/02/2010 12:00 AM and Living Will Advance Directives 01/12/2017 2:20 AM and Living Will
--- OUTSIDE RECORDS SUMMARY | 2020-03-13 22:19 | XMS REPORT | Clinical Summary ---
Author Author [facility] Address Unknown Phone Unavailable Care Team Providers Care Stab Setter And Driller Name Role Phone Sharpless PCP Allergies No [...] ot Implanted Type Area Manufactur er 02/26/2018 [id number] / / [id number] Imp Prpel Mometasn Cntr Furo 8 [place] Right: Sinus INTERSECT [id number] - [id number] ryngology ENT Implanted: Qty: 1 on 06/11/2017 by Carlos Barrera MD 11/25/2018 [id number] / / [id number] Imp Propel Mini Mometasone 15097 - [place] Right: Sinu s INTERSECT [id number] ryngology ENT Implanted: Qty: 1 on 06/11/2017 by Carlos Barrera MD 01/13/2018 [id number] / / [id number] Imp Propel Mometasone Furoate [place] Right: Sinus INTERSECT 08043 - [id number] ryngology ENT Implanted: Qty: 1 on 06/11/2017 by Carlos Barrera MD 01/16/2019 [id number] / / [id number] Imp Propel Mometasone Furoate [place] Left: Sinus INTERSECT 12111 - [id number] ryngology ENT Implanted: Qty: 1 on 06/11/2017 by Carlos Barrera MD Results Not on fileafter 03/13/2019 Insurance Payer Benefit Subscriber ID Type Phone Address Plan / Group HUMANA - MGD CARE HUMANA HMO xxxxxxxxx HMO/POS POS [phone] Advance Directives Patient has advance care planning documents on file. For more information, yohana alvarado contact: [facility] [address] [place] [address]
[2020-03-13] MEDS ORDERED: ONDANSETRON HCL INJ 2MG/ML 2ML 2 MG/ML VIAL IV PRN (22:45)
[2020-03-13] MEDS ORDERED: TEMAZEPAM 7.5 MG CAP PO PRN (22:45)
[2020-03-13] MEDS ORDERED: POLYETHYLENE GLYCOL 3350 17 GM PACK PO PRN (22:45)
[2020-03-13] MEDS ORDERED: ACETAMINOPHEN 325 MG TAB PO PRN (22:45)
[2020-03-13] MEDS ORDERED: HYDRALAZINE HCL 20 MG/ML VIAL IV PRN (22:45)
[2020-03-13 23:11] VITALS: BP 116/74
[2020-03-14] VITALS (9 sets, daily range): BP systolic 115–131; BP diastolic 71–81
--- NOTE | 2020-03-14 01:00 | NUR ---
Patient received via stretcher from ER. AAO x 3. Patient had no complaints of pain. Patient appeared to be hyperventilating. Patient placed on 2L NC. Admission history obtained. Initial physical assessment performed. Patient oriented to room, call light , visiting policy and plan of care. Patient instructed to call for assistance when needed. Call light within reach.
[2020-03-14] MEDS ORDERED: FLOMAX0.4 MG PO (01:28)
[2020-03-14] MEDS ORDERED: TYLENOL # 31 EA PO (01:28)
[2020-03-14] MEDS ORDERED: LOSARTAN POTAS100 MG PO (01:28)
[2020-03-14] MEDS ORDERED: CARVEDILOL12.5 MG PO (01:28)
--- NOTE | 2020-03-14 06:20 | NUR ---
Dr. Jasso (covering for Dr. Chavira ) was notified of "Routine Consult". Reason: Elevated BNP.
--- NOTE | 2020-03-14 06:47 | NUR ---
Patient resting comfortably. Walking rounds done. BSSR given to oncoming nurse regarding patient's status.
[2020-03-14 07:12] LABS: BASOPHILS % 0.3 % (0.0-1.0); HEMATOCRIT 40.1 % (38.2-49.6); HEMOGLOBIN 13.5 g/dL (14.0-18.0); LYMPHOCYTES # (AUTO) 0.5 (1.0-3.2); LYMPHOCYTES % 4.5 % (18.0-39.1); MEAN CORPUSCULAR HEMOGLOBIN 27.8 pg (28-32); MEAN CORPUSCULAR HGB CONC 33.7 g/dL (31-35); MEAN CORPUSCULAR VOLUME 82.5 fL (81-99); MONOCYTES # (AUTO) 0.6 (0.2-0.8); MONOCYTES % 5.6 % (4.4-11.3); NEUTROPHILS # (AUTO) 8.7 (2.1-6.9); NEUTROPHILS % 87.5 % (38.7-80.0); PLATELET COUNT 64 x10e3/uL (140-360); RED BLOOD COUNT 4.86 x10e6/uL (4.3-5.7); RED CELL DISTRIBUTION WIDTH 13.4 % (11.7-14.4)
[2020-03-14 07:44] LABS: ALBUMIN 3.5 g/dL (3.5-5.0); ALBUMIN/GLOBULIN RATIO 1.2 (0.8-2.0); ANION GAP 17.5 mmol/L (8-16); CALCIUM 7.8 mg/dL (8.4-10.2); CREATININE, SERUM 1.54 mg/dL (0.72-1.25); POTASSIUM 3.5 mmol/L (3.5-5.1)
[2020-03-14 08:10] LABS: CHOLESTEROL 92 MD/DL (0-199); MAGNESIUM 2.3 MG/DL (1.3-2.1); PHOSPHORUS 1.8 MG/DL (2.3-4.7); TRIGLYCERIDES 420 MG/DL (0-149)
[2020-03-14] MEDS: FAMOTIDINE 20 MG/2 ML VIAL IV SCH ×2 (08:31→16:21)
[2020-03-14] MEDS: DOCUSATE SODIUM 100 MG CAP PO SCH ×2 (08:31→16:21)
[2020-03-14 08:33] LABS: CREATINE KINASE MB 0.7 ng/mL (0-5.0)
[2020-03-14 08:34] LABS: HDL CHOLESTEROL < 5 MG/DL (40-60)
[2020-03-14 09:31] LABS: CLARITY,URINE SL CLOUDY (CLEAR); COLOR,URINE YELLOW (YELLOW)
[2020-03-14 09:32] LABS: BACTERIA,URINE RARE /HPF; BILIRUBIN,URINE SMALL (NEGATIVE); EPITHELIAL CELLS,URINE FEW /LPF; KETONES,URINE 2+ (NEGATIVE); LEUKOCYTE ESTERASE ,URINE NEGATIVE (NEGATIVE); NITRITE,URINE NEGATIVE (NEGATIVE); PROTEIN,URINE DIPSTICK 1+ (NEGATIVE); RBC,URINE 0-5 /HPF (0-5); URINE UROBILINOGEN 0.2 mg/dL (0.2 - 1); WBC,URINE (MAN) 0-5 /HPF (0-5)
[2020-03-14] MEDS ORDERED: ACETAMINOPHEN/CODEINE 300MG - 30MG TAB PO PRN (10:00)
[2020-03-14] MEDS: LORAZEPAM 0.5 MG TAB PO PRN ×2 (10:04→22:47)
[2020-03-14] MEDS ORDERED: FUROSEMIDE INJ 10 MG/ML 2 ML VIAL IV ONE (10:15)
--- NOTE | 2020-03-14 13:12 | Diagnostic Imaging Report ---
Right upper quadrant abdominal ultrasound, 03/14/2020. History: Abnormal prior CT. Comparison: CT chest 03/13/2020. Discussion: Transverse and longitudinal images of the right upper quadrant of the abdomen were obtained demonstrating a liver of increased size and echogenicity measuring 18.5 cm in length. A 4.6 x 3.8 x 4.5 cm hypoechoic lesion is present in the right lobe near the diaphragm. This lesion is difficult to clearly visualize due to its position. The portal vein is patent with hepatopetal flow and is within normal limits measuring 13 mm in diameter. The biliary tree is within normal limits with the common bile duct measuring for mm in diameter. The gallbladder contains minimal sludge without evidence of shadowing stones, wall thickening, or pericholecystic fluid. The sonographic Friend's sign was negative. The right kidney is normal in size and echogenicity without evidence of hydronephrosis, stones, or mass and measures 13 cm in length. The pancreas, aorta, and IVC were scattered bilaterally bowel gas. There is no evidence of free fluid. IMPRESSION: 1. Hepatomegaly with diffuse fatty infiltration of the liver. 2. Right hepatic dome lesion is difficult to visualize and is incompletely characterized on ultrasound. Recommend MRI for further evaluation. Signed by: Rk Gilbert on 03/14/2020 1:08 PM
[2020-03-14 14:30] LABS: CREATINE KINASE MB 0.7 ng/mL (0-5.0)
[2020-03-14] MEDS ORDERED: ONDANSETRON HCL 4 MG ORAL DISINTEGRATING TAB PO PRN (14:45)
[2020-03-14] MEDS: CARVEDILOL 12.5 MG TAB PO SCH (16:21)
--- NOTE | 2020-03-14 19:15 | NUR ---
Patient asleep in bed. Arousable to verbal stimuli. No signs of pain. No signs of respiratory distress, Call light within reach.
[2020-03-15] VITALS: BP 125/80
--- NOTE | 2020-03-15 02:43 | NUR ---
Patient having intermittent Trigeminy with PVCs with a HR of 64. Dr. Fan carson. Awaiting call back.
[2020-03-15 04:00] VITALS: BP 124/81
[2020-03-15 04:18] LABS: BASOPHILS % 0.3 % (0.0-1.0); EOSINOPHILS # (AUTO) 0.1 (0.0-0.4); EOSINOPHILS % 0.8 % (0.0-6.0); HEMATOCRIT 37.1 % (38.2-49.6); HEMOGLOBIN 12.8 g/dL (14.0-18.0); LYMPHOCYTES # (AUTO) 1.8 (1.0-3.2); MEAN CORPUSCULAR HEMOGLOBIN 28.8 pg (28-32); MEAN CORPUSCULAR HGB CONC 34.5 g/dL (31-35); MEAN CORPUSCULAR VOLUME 83.6 fL (81-99); MONOCYTES # (AUTO) 0.8 (0.2-0.8); MONOCYTES % 11.7 % (4.4-11.3); NEUTROPHILS # (AUTO) 4.2 (2.1-6.9); NEUTROPHILS % 59.4 % (38.7-80.0); PLATELET COUNT 76 x10e3/uL (140-360); RED BLOOD COUNT 4.44 x10e6/uL (4.3-5.7); RED CELL DISTRIBUTION WIDTH 13.7 % (11.7-14.4)
[2020-03-15 04:36] LABS: ANION GAP 16.4 mmol/L (8-16); BLOOD UREA NITROGEN 31 mg/dL (7-26); BUN/CREATININE RATIO 27 (6-25); CARBON DIOXIDE 23 mmol/L (22-29); CHLORIDE 97 mmol/L (98-107); CREATININE, SERUM 1.15 mg/dL (0.72-1.25); EST GLOMERULAR FILTRATION RATE > 60 ML/MIN (60-); GLUCOSE 167 mg/dL (74-118); MAGNESIUM 2.5 MG/DL (1.3-2.1); POTASSIUM 3.4 mmol/L (3.5-5.1); SODIUM 133 mmol/L (136-145)
--- NOTE | 2020-03-15 05:57 | Consultation ---
DATE OF CONSULTATION: 03/14/2020 Cardiology Consultation REASON FOR CONSULT: Acute on chronic CHF exacerbation. CHIEF COMPLAINT: Shortness of breath. HISTORY OF PRESENT ILLNESS: The patient is a 54-year-old male with history of nonischemic cardiomyopathy, previously EF less than 20%. He says he has not really been compliant with his medications and has seen a prep cook in a long time. Recently diagnosed with kidney stones and was undergoing treatment for this, and has experienced worsening shortness of breath for the past several days. Denies any chest pain. Does have orthopnea and PND. REVIEW OF SYSTEMS: As per HPI, otherwise negative. PAST MEDICAL HISTORY: History of chronic systolic CHF, hypertension, hyperlipidemia, and CKD. SOCIAL HISTORY: Does not smoke, drink, or abuse drugs. FAMILY HISTORY: Noncontributory. OUTPATIENT MEDICATIONS: Reviewed. ALLERGIES: NO KNOWN DRUG ALLERGIES. PHYSICAL EXAMINATION: VITAL SIGNS: Temperature afebrile, pulse 90, respiratory rate 16, blood pressure 131/81, saturating 96% on 2 L nasal cannula. GENERAL: Middle-aged man, in no acute distress. CARDIOVASCULAR: Regular rate and rhythm. No murmurs, rubs, or gallops. LUNGS: Clear to auscultation anteriorly. ABDOMEN: Soft, nontender, and nondistended. NEURO AND PSYCH: Alert and oriented to person, place, and time. Normal affect. EXTREMITIES: Warm, well perfused. No edema or varicosities or ulcers. INPATIENT MEDICATIONS: Reviewed. LABORATORY DATA: Reviewed. Notable for GFR 47. Troponins are negative. BNP 540 on presentation. Sodium 130. IMAGING DATA: Reviewed. Chest CT shows an 8 mm right lung nodule, also hepatic cyst and splenomegaly. No significant pulmonary edema. Echocardiogram showed LVEF of about 45%. ASSESSMENT: 1. Acute on chronic congestive heart failure exacerbation. 2. Hypertension. 3. Hyperlipidemia. PLAN: Continue gentle oral Lasix for now as chest CT did not show significant pulmonary edema and had significant FER and hyponatremia. On presentation, renal function seems to be improving, so okay to continue losartan. Continue carvedilol. Continue monitoring on telemetry. Once acute medical issues resolved, the patient is okay to be discharged from cardiovascular standpoint with a close outpatient followup in clinic in about one week after discharge. Thank you for this consult. We will continue to follow. MD MIKE Jerome/TERESITA /[id number]
--- NOTE | 2020-03-15 07:00 | NUR ---
Walking rounds done. BSSR given.
[2020-03-15] MEDS ORDERED: POTASSIUM CHLO20 ME1 PO (07:15)
[2020-03-15] MEDS ORDERED: FENOFIBRATE145 MG PO (07:15)
[2020-03-15] MEDS ORDERED: FUROSEMIDE40 MG PO (07:15)
[2020-03-15] MEDS ORDERED: OMEGA-3 FISH O1 EAC2 PO (07:15)
[2020-03-15] MEDS ORDERED: METFORMIN HCL500 MG PO (07:16)
[2020-03-15 07:52] VITALS: BP 139/82
[2020-03-15] MEDS ORDERED: POTASSIUM CHLORIDE 20 MEQ TAB CR PO ONE (08:00)
[2020-03-15] MEDS ORDERED: TAMSULOSIN HCL 0.4 MG CAP PO SCH (09:00)
[2020-03-15] MEDS ORDERED: LOSARTAN POTASSIUM 100 MG TAB PO SCH (09:00)
[2020-03-15] MEDS ORDERED: FENOFIBRATE 145 MG TAB PO SCH (09:00)
[2020-03-15] MEDS ORDERED: OMEGA 3 POLYUNSAT FATTY ACIDS 1000 MG SOFTGEL PO SCH (09:00)
[2020-03-15] MEDS ORDERED: FUROSEMIDE 40 MG TAB PO SCH (09:00)
[2020-03-15] MEDS: FAMOTIDINE 20 MG/2 ML VIAL IV SCH (09:27)
[2020-03-15] MEDS: DOCUSATE SODIUM 100 MG CAP PO SCH (09:27)
[2020-03-15] MEDS: CARVEDILOL 12.5 MG TAB PO SCH (09:27)
[2020-03-15] MEDS: LORAZEPAM 0.5 MG TAB PO PRN (09:28)
--- NOTE | 2020-03-15 10:07 | NUR ---
Home O2 eval completed. Pt was 92% on RA on exertion.
--- NOTE | 2020-03-15 11:23 | NUR ---
Pt uses [facility] at [address] [place] [id number]. [phone]
[2020-03-15 11:32] VITALS: BP 144/86
--- NOTE | 2020-03-15 15:20 | Diagnostic Imaging Report ---
MRI ABDOMEN WO HISTORY: to r/o liver lesion, MRI without contrast COMPARISON: None. TECHNIQUE: MRI of the abdomen was performed without intravenous contrast. Multiplanar, multisequence images were obtained before and following intravenous injection of intravenous gadolinium contrast. FINDINGS: Motion degraded exam, nearly nondiagnostic Hepatobiliary Findings: Contour and signal intensity: Severe signal loss on opposed phase imaging compatible with steatosis. 22 cm in long axis. No Contour nodularity to suggest cirrhosis. Lesions: A lobulated 39 x 31 mm T2 hyperintense lesion in segment 7/8 and a circumscribed 11 mm T2 hyperintense lesion in segment 5/8. Findings are incompletely characterized without intravenous contrast. Gallbladder and bile ducts: Unremarkable. Spleen: Moderately enlarged, 15.5 cm in long axis Ascites: None. Additional Findings: Lung bases: Unremarkable. Pancreas: Unremarkable. Adrenals: Unremarkable. Kidneys and ureters: A 15 mm T2 hyperintense focus at the right upper pole, likely a cyst but incompletely characterized Bowel: No bowel distention or wall thickening Lymph nodes: Unremarkable. Peritoneum: Unremarkable. Vessels: Unremarkable. Abdominal wall: Unremarkable. Bones: T2 hyperintense foci at multiple vertebral body levels which saturate out on fat saturated images, likely intraosseous hemangiomas. Multilevel subcentimeter perineural root sleeve cysts. A markedly T1 hypointense focus in the right iliac bone, possibly a bone island. IMPRESSION: 1. Two T2 hyperintense hepatic lesions, 39 mm and 11 mm, incompletely characterized without intravenous contrast. Recommend contrast-enhanced liver mass protocol MRI or CT for complete characterization. 2. Marked hepatic steatosis and hepatosplenomegaly. Signed by: Zak Soliman MD on 03/15/2020 3:17 PM
[2020-03-15] MEDS ORDERED: FAMOTIDINE 20 MG TAB PO SCH (17:30)
--- NOTE | 2020-03-16 07:36 | Discharge Summary ---
DISCHARGE DIAGNOSES: Acute on chronic systolic CHF, hypertension with chronic systolic CHF, and FER. DISCHARGE DIAGNOSES: Acute on chronic systolic CHF, hypertension with chronic systolic CHF, FER plus hepatic lesion and BPH. HISTORY: Hypertension plus chronic systolic congestive heart failure. PAST SURGICAL HISTORY: Sinus surgery and prostate surgery. FAMILY HISTORY: Noncontributory. SOCIAL HISTORY: Noncontributory. HOSPITAL COURSE: A 54-year-old male admits with complaints of shortness of breath and fatigue. His echo showed an EF of 30%. CT of the chest on admission showed no lung consolidation, right lung nodule measuring up to 8 mm, hepatic steatosis, and a 4.8 cm hepatic dome hypodense lesion and splenomegaly. Ultrasound of the liver was ordered, which showed hepatomegaly with diffuse fatty infiltration of the liver. An MRI was recommended for right hepatic dome lesion. MRI was done, which showed two T2 hyperintense hepatic lesions 39 mm and 11 mm. A contrast MRI was advised, but the patient refused. BNP on admission was 540. Troponins were negative. His triglycerides were elevated at 420. [place] virus was negative. Blood culture was initially negative and then came back possibly contaminated. As the patient is very adamant about leaving today repeat blood cultures were drawn before discharge and the patient provided his pharmacy number to followup if bacteremia was diagnosed. Cardiology was consulted on admission. The patient was advised to limit fluid intake. He was discharged home with prescriptions for fenofibrate, Lasix, [place]-3, and potassium. He was advised of the fluid restrictions of 1.2 L per day. He was assessed for all home O2 before discharge and he did not qualify. Although the patient's A1c was 7.6 he did not want to be on diabetes medicine and said that he would change his diet. He was advised to follow up with the MRI of the abdomen with contrast through his PCP office. The patient understands instructions and agrees to plan. At the time of discharge vital signs stable and patient is afebrile. Dictated by Meliza Chavez NP MD ROOSEVELT Bautista/MODL /[id number]
[2020-03-19] MEDS ORDERED: MEGANATURAL-BP150 MG PO (10:57)
[2020-03-19] MEDS ORDERED: TURMERIC1 GM PO (10:57)
== END 2020-03-15 17:12 | disposition home or self-care (01) ==
LOC: ER 19:20 → ERHOLD 21:56 → MED/SURG2 23:14
PROVIDERS: ADMIT Internal Medicine; ATTEND Internal Medicine
DX: I13.0 Hypertensive heart and chronic kidney disease with heart failure and stage 1 through stage 4 chronic kidney disease, or unspecified chronic kidney disease (principal); I50.23 Acute on chronic systolic (congestive) heart failure; F41.9 Anxiety disorder, unspecified; E78.5 Hyperlipidemia, unspecified; N17.9 Acute kidney failure, unspecified; N18.9 Chronic kidney disease, unspecified; Z91.14 Patient's other noncompliance with medication regimen; Z91.19 Patient's noncompliance with other medical treatment and regimen; E11.22 Type 2 diabetes mellitus with diabetic chronic kidney disease; E87.1 Hypo-osmolality and hyponatremia; N40.0 Benign prostatic hyperplasia without lower urinary tract symptoms; R91.1 Solitary pulmonary nodule; K76.0 Fatty (change of) liver, not elsewhere classified; Z11.59 Encounter for screening for other viral diseases
CPT/HCPCS: 36415 ×3; 36600; 71260; 74181; 76705; 80048; 80053 ×2; 80061; 81001; 82550 ×2; 82553 ×2; 82805; 83036; 83605; 83735 ×2; 83880; 84100; 84443; 84484 ×2; 85025 ×3; 87040 ×2; 87071; 87205; 93306; 97139; 97161; 99284; G0378 ×3; J1940; J2060; J2543; J7030; Q9967; U0002

== ENCOUNTER → 2020-03-21 | Day surgery (SDC) | payer BC, OTHER ==
[~2020-03-21] MED LIST: CARVEDILOL12.5 MG PO; CEFTRIAXONE SOD 1 GM/NS 50 ML 50 ML IV ONE; DEXAMETHASONE SOD PHOS INJ 4 MG/ML VIAL ONE; FENOFIBRATE145 MG PO; FENTANYL CITRATE/PF 100MCG/2 ML INJ ONE; FLOMAX0.4 MG PO; FUROSEMIDE40 MG PO; IOPAMIDOL 300MG/ML 50ML INFUS..BTL IV ONE; LIDOCAINE HCL 2% LOCAL INJ 5 ML SDV VIAL INJ ONE; LOSARTAN POTAS100 MG PO; MEGANATURAL-BP150 MG PO; METFORMIN HCL500 MG PO; MIDAZOLAM HCL 2 MG/2 ML VIAL ONE; OMEGA-3 FISH O1 EAC2 PO; ONDANSETRON HCL INJ 2MG/ML 2ML 2 MG/ML VIAL ONE; POTASSIUM CHLO20 ME1 PO; PROPOFOL IV EMULSION 10 MG/ML 20 ML VIAL ONE; SEVOFLURANE INHAL SOLN 250 ML PEN BTL ONE; TURMERIC1 GM PO; TYLENOL # 31 EA PO
[2020-03-21 11:25] VITALS: BP 148/91
--- NOTE | 2020-04-04 14:15 | Operative Report ---
DATE OF PROCEDURE: 03/21/2020 SURGEON: Lee Bowles MD PREOPERATIVE DIAGNOSIS: Right renal pelvic stone. POSTOPERATIVE DIAGNOSIS: Right renal pelvic stone. OPERATIVE PROCEDURES PERFORMED: 1. Cystoscopy. 2. Right retrograde pyelogram. 3. Right ureteroscopy with laser lithotripsy. 4. Placement of right ureteral stent. ANESTHESIA: General anesthesia. ESTIMATED BLOOD LOSS: Minimal. INDICATIONS: Mr. Ceja is a 54-year-old gentleman with recent right flank pain, found to have an approximately 8 mm stone in right renal pelvis and proximal ureter. He now presents for management of this stone. DESCRIPTION OF PROCEDURE: The patient was brought to the operative room, placed in supine position and after initiation of general anesthesia, was placed in dorsal lithotomy position, prepped and draped in the usual sterile fashion. Cystourethroscopy was performed using a 21-[place] cystoscope. The anterior and posterior urethra were noted to be normal. The prostate revealed mild elevation of the median bar. The bladder was entered without difficulty. Upon entrance into the bladder, the ureteral orifices were in a normal anatomical position and produced largely clear efflux. There were no mucosal lesions identified. Using a five-[place] open-ended catheter a right retrograde pyelogram was performed. This revealed a filling defect in the renal pelvis suspicious for the presumed stone. A wire was then placed across the ureteral orifice and up into the renal pelvis under fluoroscopic guidance and the ureteral access sheath was placed. Flexible ureteroscopy was then performed. The stone was visualized in the renal pelvis and the holmium laser was used to break this up into smaller fragments. A large chunk was removed and sent to pathology for identification. The smaller pieces were felt to be passable. The ureteral access sheath and ureteroscope were then removed on the wire left in situ. A double pigtail stent was then placed such that one coil was in the renal pelvis and the subsequent coil was in the bladder. The string was allowed to exit the urethral meatus. The bladder was then drained in its entirety and the cystoscope and sheath were removed. The patient was returned to supine position. Anesthesia was reversed. He was transferred to a bed and taken to the postanesthesia care unit in good condition. Of note, the needle and instrument count were correct at the conclusion of the case. MD KYRA Delcid/ASHWINL /[id number]
== END | disposition home or self-care (01) ==
LOC: OR 06:50
PROVIDERS: ATTEND Urology
DX: N20.0 Calculus of kidney (principal); I10 Essential (primary) hypertension; N40.1 Benign prostatic hyperplasia with lower urinary tract symptoms; Z01.810 Encounter for preprocedural cardiovascular examination; Z01.812 Encounter for preprocedural laboratory examination; Z11.59 Encounter for screening for other viral diseases
CPT/HCPCS: 52356; 74420; 88300; 93005; C1758; C1766; C1769; C2617; J0696; J1100; J2001; J2250; J2405; J2704; J3010; Q9967; U0002